=== PATIENT | male | born 1945 | race American Indian/Alaskan Native ===

== ENCOUNTER 2020-11-17 06:17 | Day surgery (SDC) | payer MEDICARE, OTHER ==
[2020-11-17 07:29] LABS: Basophils % (Auto) 0.7 % (0.0-1.8); Eosinophils # (Auto) 0.1 K/mm3 (0.0-0.4); Hematocrit 44.6 % (35.5-45.6); Hemoglobin 15.5 gm/dl (11.8-15.2); Lymphocytes # (Auto) 1.6 K/mm3 (1.2-5.4); Lymphocytes % (Auto) 34.7 % (13.4-35.0); Mean Corpuscular HGB Conc 35 % (32-34); Mean Corpuscular Volume 91 fl (84-94); Monocytes # (Auto) 0.5 K/mm3 (0.0-0.8); Monocytes % (Auto) 11.4 % (0.0-7.3); Platelet Count 213 K/mm3 (140-440); Red Blood Count 4.93 M/mm3 (3.65-5.03); Red Cell Distribution Width 13.9 % (13.2-15.2)
[2020-11-17] MEDS ORDERED: ASPIRIN EC 325 MG TAB PO SCH (07:30)
[2020-11-17 07:40] LABS: INR 0.87 (0.87-1.13)
[2020-11-17 08:17] LABS: Blood Urea Nitrogen 7 mg/dL (9-20); Calcium 9.4 mg/dL (8.4-10.2); Hemolysis Index 110
[2020-11-17 08:21] LABS: BUN/Creatinine Ratio 10
[2020-11-17] MEDS ORDERED: HEPARIN/NS 5000 UNIT/500ML 1,000 ML IR ONE (08:24)
[2020-11-17] MEDS ORDERED: HEPARIN 10,000 UNITS/10 ML VIAL ONE (08:24)
[2020-11-17] MEDS ORDERED: NITROGLYCERIN SYRINGE 0 ML ONE (08:25)
[2020-11-17] MEDS ORDERED: VERAPAMIL 5 MG/2 ML INJ ONE (08:25)
[2020-11-17] MEDS: SODIUM CHLORIDE 0.9% 500 ML 500 ML IV SCH ×2 (08:43→09:00)
[2020-11-17] MEDS: MIDAZOLAM 2 MG/2 ML INJ ONE ×2 (09:04→09:12)
[2020-11-17] MEDS: LIDOCAINE (2%) 20 MG/1 ML VIAL 20 ML MDV INFILTRATI ONE ×2 (09:04→09:19)
[2020-11-17] MEDS: fentaNYL 100 MCG/2 ML INJ ONE ×2 (09:04→09:12)
[2020-11-17] MEDS ORDERED: HYDROcodone/ACETAMINOPHEN 5-325 MG TAB PO PRN (09:46)
[2020-11-17] MEDS ORDERED: traMADol 50 MG TAB PO PRN (09:46)
--- NOTE | 2020-11-17 09:49 | Short Stay Summary ---
Short Stay Documentation Date of service: 11/17/20 - History H&P: obtained from office - Allergies and Medications Current Medications: Allergies meclizine [From Antivert] Allergy (Verified 11/17/20 07:03) Rash shellfish derived Allergy (Verified 11/17/20 08:10) Shortness of Breath Home Medications Medication Instructions Recorded Confirmed Last Taken Type Albuterol Sulfate [Proventil Hfa] 6.7 gm IH PRN PRN 11/17/20 11/17/20 11/17/20 07:00 History Alfuzosin HCl [Alfuzosin HCl ER] 10 mg PO HS 11/17/20 11/17/20 11/15/20 History 10 mg Aspirin EC [Halfprin EC] 81 mg PO DAILY 11/17/20 11/17/20 11/16/20 History 81 mg Atorvastatin [Lipitor] 40 mg PO HS 11/17/20 11/17/20 11/15/20 History 40 mg Canagliflozin [Invokana] 300 mg PO DAILY 11/17/20 11/17/20 11/15/20 History 300 mg Fluticasone/Salmeterol [Advair 1 puff INHALATION DAILY 11/17/20 11/17/20 11/16/20 History Diskus 100-50 mcg] 1 puff Insulin Glargine,Hum.rec.anlog 28 unit SQ QHS 11/17/20 11/17/20 11/15/20 History [Lantus Solostar] 28 units Metformin HCl [metFORMIN] 1,000 mg PO BID 11/17/20 11/17/20 11/15/20 History 1000 mg Vit D3-Vit K/[place]/Hops 1 tab PO DAILY 11/17/20 11/17/20 11/15/20 History [Ostera Tablet] 10 tab Active Medications Aspirin (Aspirin Ec 325 Mg Tab) 325 mg PO ONCE SUSIE Stop: 11/17/20 17:00 Last Admin: 11/17/20 07:38 Dose: 325 mg Documented by: Sodium Chloride (Nacl 0.9% 500 Ml) 500 mls @ 50 mls/hr IV DIRECT SUSIE Stop: 11/17/20 17:59 Last Admin: 11/17/20 09:00 Dose: 50 mls/hr Documented by: - Brief post op/procedure progress note Date of procedure: 11/17/20 Pre-op diagnosis: severe aortic stenosis Post-op diagnosis: same Anesthesia: local Estimated blood loss: minimal Pathology: none - Disposition Condition at discharge: Good Disposition: [id number] TO HOME OR SELFCARE - Discharge Diagnoses (1) Aortic stenosis, severe Status: Chronic (2) CAD (coronary artery disease) Status: Chronic Qualifiers: Coronary Disease-Associated Artery/Lesion type: [place] artery [place] vs. 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
--- NOTE | 2020-11-17 09:56 | Cardiac Catherization Report ---
DATE OF SERVICE: 11/17/2020 LEFT HEART CATHETERIZATION CLINICAL INFORMATION: This is a 75-year-old -Italian gentleman with obesity, diabetes, has severe aortic stenosis with hyperlipidemia and hypertension on echocardiogram, here for left heart catheterization. DESCRIPTION OF PROCEDURE: Procedure was done with moderate sedation started at 9:12, finished at 9:40, that is 28 minutes of moderate sedation and procedure was done via right common femoral artery, sterile technique, local anesthesia, 6 Irish groin sheath inserted. Left system engaged with JR4 catheter. Left main is a large caliber vessel, is patent, bifurcates into medium caliber LAD and then the distal LAD becomes a small caliber vessel, less than 1.5 mm in the distal portion. Ramus is a medium caliber vessel, patent with mild luminal irregularities. Circumflex, large caliber vessel, patent with mild luminal irregularities. OM1, OM2 are medium caliber vessel, patent with mild luminal irregularities. RCA, large dominant vessels patent with mild luminal irregularities. PDA and PLV are small to medium caliber patent with mild irregularities. LV gram done in EMIRATI and ARMENTA shows normal LV function, LVEDP of 20 mmHg, LV is 198, aortic is 152/71. There was significant gradient across the aortic valve with a mean gradient of 40 mmHg. The [id number] gradient 46 mmHg using 2 transducers. Catheters were removed over a guidewire, 6 Irish groin sheath was discontinued, manual pressure held. No hematoma, no bleeding. SUMMARY: Left main patent, LAD patent proximal and distal becomes a small caliber vessel, mild luminal irregularities. The ramus is a medium caliber vessel, patent with mild luminal irregularities. Circumflex, large caliber vessel, patent with mild luminal irregularities. OM1, OM2 medium caliber vessel, patent with mild luminal irregularities. RCA large, dominant vessel, patent with mild luminal irregularities. Normal LV function with severe aortic stenosis with a mean gradient of 40 mmHg, [id number]-qz-wedw gradient 46 mmHg. TID: [id number] RECEIPT: [id number] INDYM/AARON
[2020-11-17 13:50] VITALS: BP 134/75
--- NOTE | 2020-11-18 12:22 | Electrocardiograph Report ---
[facility] Test Date: 2020-11-17 Test Time: 07:34:06 Pat Name: CELIA RAE Department: Room: Gender: M [employer] Report Developer: KYLAH : 1945 Requested By: ALLEGRA JORDAN Order Number: [id number] Reading MD: Concha Donis Measurements Intervals [place] Rate: 73 P: 66 NM: 177 QRS: 20 QRSD: 72 T: 8 QT: 370 QTc: 409 Interpretive Statements Sinus rhythm Early R wave transition possible posterior infarct, old No previous ECG available for comparison Electronically Signed On 11-18-2020 12:21:34 EDT by Concha Donis
== END 2020-11-17 14:10 | disposition home or self-care (01) ==
LOC: CATHLABREC 06:17
PROVIDERS: ATTEND Internal Medicine
DX: I35.0 Nonrheumatic aortic (valve) stenosis (principal); E11.9 Type 2 diabetes mellitus without complications; E66.9 Obesity, unspecified; I10 Essential (primary) hypertension; E78.2 Mixed hyperlipidemia; J45.909 Unspecified asthma, uncomplicated; Z91.013 Allergy to seafood; Z88.8 Allergy status to other drugs, medicaments and biological substances; Z79.899 Other long term (current) drug therapy; Z79.4 Long term (current) use of insulin; Z79.82 Long term (current) use of aspirin; Z87.891 Personal history of nicotine dependence; Z68.29 Body mass index [BMI] 29.0-29.9, adult; Z98.49 Cataract extraction status, unspecified eye; Z90.49 Acquired absence of other specified parts of digestive tract; Z98.890 Other specified postprocedural states; Z83.3 Family history of diabetes mellitus
CPT/HCPCS: 36415; 80048; 82962; 85025; 85610; 85730; 93005; 93458; 99156; 99157; C1769; C1894; J1644; J2250; J3010; J7040; Q9967